=== PATIENT | male | born 1955 | race Caucasian/White ===

== ENCOUNTER 2018-02-15 08:56 | Emergency (ER) | payer OTHER ==
--- NOTE | 2018-02-15 09:18 | EDPHY ---
HPI/HX/ROS/PE/MDM Narrative: CHIEF COMPLAINT: Chest pain HPI: This patient is a 62-year-old male with history of idiopathic DVT. He presents with right-sided chest pain onset yesterday around 4pm. This began while he was sitting at work. It is intermittent and sharp. Episodes last several seconds. He endorses associated with SOB. Ne does not have any increased pain associated with breathing. This morning on his way to work, he noted that the discomfort now radiates from the right chest to his left arm. He was treated for a DVT in August 2017 and discontinued his anticoagulants in November. He denies recent fever or cough. He denies known history of CAD in himself or his family. He denies history of cardiac evaluation including stress test. No known personal history of hypertension, hyperlipidemia, diabetes. Family history significant for PE in a great-grandfather, otherwise no known clotting disorders or history of CAD. REVIEW OF SYSTEMS: A comprehensive 10 system review of systems is otherwise negative aside from elements mentioned in the history of present illness and medical decision making. PMH: History of DVT. BPH s/p prostate resection. SOCIAL HISTORY: Employed. Single. Lives in [place]. PHYSICAL EXAM: General:Patient is alert, in no acute distress. ENT:Eyes are normal to inspection. ENT inspection normal. Neck: Normal inspection. Full range of motion. Respiratory:No respiratory distress. Breath sounds normal bilaterally. Cardiovascular: Regular rate and rhythm. Strong peripheral pulses. Normal cap refill. Abdomen:The abdomen is nontender to palpation. There are no peritoneal signs. There are normal bowel sounds. Back: Normal to inspection. No tenderness to palpation. Skin: Normal color. No rash. Warm and dry. Extremities: Normal appearance. Full range of motion. Neuro: Oriented x3. Normal motor function. Normal sensory function. ED Course: 62 y/o male presents with right-sided chest pain. Exam unremarkable. Given history of DVT, plan for CTA chest to r/o PE. Plan for EKG, labs including CBC, chemistries, troponin. EKG was ordered and interpreted by myself. Please see [employer] system for official reading. Sinus rhythm. 10:[address] Britton, radiologist. CTA chest negative for PE or other acute processes. Reviewed laboratory studies and imaging results. Patient has a negative workup including negative troponin and negative CTA chest. Plan for outpatient cardiology follow-up. 10:28 Reassessed patient. He is a [facility] patient and will follow up with their cardiology department. 10:33 Called [facility]. They are aware of the patient and will notify his primary care provider that he needs a referral to cardiology. Plan to discharge patient home in good condition. Follow up and return precautions discussed. The patient is comfortale with this plan. MDM: This patient presents with atypical chest pain. Given history of recent idiopathic DVT, now currently not on anti-coagulants, I felt that his pre-test probability was too high to send a d-dimer, and thus proceeded directly with CTA. This is thankfully negative. Patient is currently asymptomatic and would like to go home. We discussed options including admission and further testing but he declines. He is aware that the etiology of his symptoms is unknown and further workup is needed. We discussed strict return precautions. - Data Points Imaging Results: Imaging Impressions Chest/Thorax CTA 02/15/18 09:18 Impression: 1. No evidence of thrombopulmonary embolic disease. 2. Clear lungs. No acute process or explanation for right-sided pain. Findings discussed with Emergency Department physician, Rick Riddle MD, on 02/15/2018 at 10:20 a.m. Imaging: Discussed imaging studies w/ bingo caller Radiologist Laboratory Results: Laboratory Results 02/15/18 09:10 02/15/18 09:10 02/15/18 02/15/18 02/15/18 09:33 09:15 09:10 WBC RBC Hgb POC Hgb 17.0 gm/dL gm/dL (13.7-17.5) Hct POC Hct 50 % % (40-51) MCV MCH MCHC RDW Plt Count MPV Neut % (Auto) Lymph % (Auto) [place] % (Auto) Eos % (Auto) Baso % (Auto) Nucleat RBC Rel Count Absolute Neuts (auto) Absolute Lymphs (auto) Absolute Monos (auto) Absolute Eos (auto) Absolute Basos (auto) Absolute Nucleated RBC Immature Gran % Immature Gran # POC Sodium 142 mEq/L mEq/L (135-145) Sodium 140 mEq/L mEq/L (135-145) POC Potassium 4.4 mEq/L mEq/L (3.3-5.0) Potassium 4.8 mEq/L mEq/L (3.3-5.0) POC Chloride 105 mEq/L mEq/L (97-110) Chloride 106 mEq/L mEq/L (97-110) Carbon Dioxide 27 mEq/l mEq/l (22-31) Anion Gap 7 mEq/L L mEq/L (8-16) POC BUN 11 mg/dL mg/dL (7-23) BUN 12 mg/dL mg/dL (7-23) Creatinine 0.6 mg/dL L mg/dL (0.7-1.3) POC Creatinine 0.6 mg/dL L mg/dL (0.7-1.3) Estimated GFR > 60 Glucose 120 mg/dL H mg/dL (70-100) POC Glucose 120 mg/dL H mg/dL (70-100) Calcium 9.5 mg/dL mg/dL (8.5-10.4) POC Troponin I 0.00 ng/mL ng/mL (0.00-0.08) 02/15/18 09:10 WBC 4.78 10^3/uL 10^3/uL (3.80-9.50) RBC 5.41 10^6/uL 10^6/uL (4.40-6.38) Hgb 15.9 g/dL g/dL (13.7-17.5) POC Hgb Hct 47.3 % % (40.0-51.0) POC Hct MCV 87.4 fL fL (81.5-99.8) MCH 29.4 pg pg (27.9-34.1) MCHC 33.6 g/dL g/dL (32.4-36.7) RDW 13.8 % % (11.5-15.2) Plt Count 200 10^3/uL 10^3/uL (150-400) MPV 11.5 fL fL (8.7-11.7) Neut % (Auto) 46.7 % % (39.3-74.2) Lymph % (Auto) 43.9 % % (15.0-45.0) [place] % (Auto) 6.5 % % (4.5-13.0) Eos % (Auto) 1.7 % % (0.6-7.6) Baso % (Auto) 1.0 % % (0.3-1.7) Nucleat RBC Rel Count 0.0 % % (0.0-0.2) Absolute Neuts (auto) 2.23 10^3/uL 10^3/uL (1.70-6.50) Absolute Lymphs (auto) 2.10 10^3/uL 10^3/uL (1.00-3.00) Absolute Monos (auto) 0.31 10^3/uL 10^3/uL (0.30-0.80) Absolute Eos (auto) 0.08 10^3/uL 10^3/uL (0.03-0.40) Absolute Basos (auto) 0.05 10^3/uL 10^3/uL (0.02-0.10) Absolute Nucleated RBC 0.00 10^3/uL 10^3/uL (0-0.01) Immature Gran % 0.2 % % (0.0-1.1) Immature Gran # 0.01 10^3/uL 10^3/uL (0.00-0.10) POC Sodium Sodium POC Potassium Potassium POC Chloride Chloride Carbon Dioxide Anion Gap POC BUN BUN Creatinine POC Creatinine Estimated GFR Glucose POC Glucose Calcium POC Troponin I Point of Care Test Results: Chemistry 02/15/18 02/15/18 09:33 09:15 POC Sodium 142 mEq/L mEq/L (135-145) POC Potassium 4.4 mEq/L mEq/L (3.3-5.0) POC Chloride 105 mEq/L mEq/L (97-110) POC BUN 11 mg/dL mg/dL (7-23) POC Creatinine 0.6 mg/dL L mg/dL (0.7-1.3) POC Glucose 120 mg/dL H mg/dL (70-100) POC Troponin I 0.00 ng/mL ng/mL (0.00-0.08) ISTAT H&H 02/15/18 09:33 POC Hgb 17.0 gm/dL gm/dL (13.7-17.5) POC Hct 50 % % (40-51) General Time Seen by Provider: 02/15/18 09:06 Initial Vital Signs: Initial Vital Signs Temperature (C) 36.6 C 02/15/18 09:02 Heart Rate 82 02/15/18 09:02 Respiratory Rate 18 02/15/18 09:02 Blood Pressure 136/81 H 02/15/18 09:02 O2 Sat (%) 97 02/15/18 09:02 O2 Delivery Mode Room Air Allergies/Adverse Reactions: No Known Allergies Allergy (Verified 02/15/18 09:01) Home Medications: Medication Instructions Recorded Aspirin 81mg (*) 02/15/18 Departure - Departure Disposition: Home, Routine, Self-Care Clinical Impression: Chest pain Qualifiers: Chest pain type: unspecified Qualified Code(s): R07.9 - Chest pain, unspecified Condition: Good Instructions: Chest Pain (ED) Additional Instructions: Follow-up with your primary doctor within 72 hours. Return to the Emergency Department for fever, chest pain, shortness of breath, increasing pain or other worsening of condition. Follow up with a special trackwork blacksmith for further testing, as soon as possible, within one week. We called [facility] to let them know you were seen here today for chest pain and that you need to follow up with cardiology, they will send a message to your primary care provider regarding this. Please follow up if you do not hear from them soon. Referrals: Tony Sam MD [Medical Doctor] - As per Instructions [facility] ,. [Edm Groups for Call Sched] - As per Instructions Report Scribed for: Rick Riddle Report Scribed by: Tereza Wen Date of Report: 02/15/18 Time of Report: 10:32 Physician Review and Approval Statement: Portions of this note were transcribed by an ED scribe. I personally performed the history, physical exam, and medical decision making; and confirm the accuracy of the information in the transcribed note.
[2018-02-15 09:21] LABS: PLATELET COUNT 200 10^3/uL (150-400)
[2018-02-15] MEDS ORDERED: IOPAMIDOL (ISOVUE 370) 100 ML BTL IV ONE (09:41)
[2018-02-15 10:53] VITALS: BP 109/72
--- NOTE | 2018-02-15 14:24 | CPEKG ---
Test Reason : OPEN Blood Pressure : / mmHG Vent. Rate : 073 BPM Atrial Rate : 073 BPM P-R Int : 163 ms QRS Dur : 104 ms QT Int : 385 ms P-R-T Axes : 053 -08 046 degrees QTc Int : 425 ms Sinus rhythm Borderline ST elevation, anterior leads Confirmed by Rick Riddle ([id number] on 02/15/2018 2:23:27 PM Referred By: Confirmed By:Rick Riddle
== END 2018-02-15 10:50 | disposition home or self-care (01) ==
DX: R07.9 Chest pain, unspecified (principal); Z86.718 Personal history of other venous thrombosis and embolism; N40.0 Benign prostatic hyperplasia without lower urinary tract symptoms
CPT/HCPCS: 82435-PO; 82565-PO; 82947-PO; 84132-PO; 84295-PO; 84484-PO; 84520-PO; 85014-PO; Q9967